=== PATIENT | female | born 1995 | race Caucasian/White ===

== ENCOUNTER 2020-10-30 15:47 | Emergency (ER) | payer OTHER, SELFPAY ==
[2020-10-30 15:53] VITALS: BP 147/94; PULSE 90; RESP 16; TEMP 36.7; O2SAT 100
--- NOTE | 2020-10-30 16:17 | ED.FEMALEGU ---
HPI - Female Genitourinary General Chief complaint: Urogenital-Female Stated complaint: UTI SYMPTOMS Source: patient and RN notes reviewed Limitations: no limitations History of Present Illness HPI Narrative: The patient, previously mostly healthy non-smoker/nondrinker, presents with ~week history of urinary frequency, urgency and dysuria associated also with malodor and pink-tinged hematuria only yesterday. No fever, abdominal pain, vomiting/diarrhea, hematuria now, low back pain, vaginal discharge; she says she has been tested for and STDs this month. Symptoms are mild, worse with micturition Related Data Allergies Allergy/AdvReac Type Severity Reaction Status Date / Time No Known Allergies Allergy Verified 10/30/20 15:59 Review of Systems Review of Systems: Narrative: The patient has been informed that they may have pre-hypertension or Hypertension based on a BP reading in the department. I recommend that the patient call the primary care provider listed on their discharge instructions or a physician of their choice this week to arrange follow up for further evaluation of possible pre-hypertension or Hypertension General/Constitutional: No weight loss,fever Eyes: N0: Redness,discharge Ears/Nose/Throat: No: Epistaxis,ear discharge Respiratory: Denies: Hemoptysis Gastrointestinal: No Vomiting, Bleeding-rectal Skin: No Lumps, eruption Neurologic: No Focal Weakness,Sz Hematologic: Denies: Petechiae/Purpura Psychiatric: No: Suicida ideationl All Other Systems: Reviewed and Negative PMFSH Comments At time of signature, agree with nursing past medical, surgical, social and family history. There is no relevant family history pertinent to the presenting complaint Exam Narrative: Exam Narrative: General Appearance: Well appearing, Conjunctiva clear Ears: External ear normal Nose: Normal nose Mouth/Throat: Normal appearing, Normal lips, Supple Respiratory: Airway patent, No respiratory distress abdomen: Soft, Non-tender, Musculoskeletal: Full ROM Skin: Warm, Dry Neurological: A&O x3, , Normal affect Course Vital Signs Vital signs: Vital Signs Temperature 98.1 F 10/30/20 15:53 Pulse Rate 90 10/30/20 15:53 Respiratory Rate 16 10/30/20 15:53 Blood Pressure 147/94 H 10/30/20 15:53 Pulse Oximetry 100 10/30/20 15:53 Temperature 98.1 F 10/30/20 15:53 Pulse Rate 90 10/30/20 15:53 Respiratory Rate 16 10/30/20 15:53 Blood Pressure 147/94 H 10/30/20 15:53 Pulse Oximetry 100 10/30/20 15:53 MDM - Female Genitourinary Lab Data Labs: Urine Glucose Negative Reference Range: Negative Urine Bilirubin Negative Reference Range: Negative Urine Specific [place] 1.020 Reference Range:1.001-1.035 Urine Blood 2+ Reference Range: Negative * * Urine pH 5.5 Reference Range: 5.0-9.0 Urine Protein Trace Reference Range: Negative Urine Urobilinogen 0.2 Reference Range: 0.2-1.0 Urine Nitrate Positive Reference Range: Negative Urine Leukocyte 3+ Reference Range: Negative Urine Color Yellow Reference Range: Yellow Urine Characteristics Cloudy Discharge Plan Discharge
== END 2020-10-30 16:22 | disposition home or self-care (01) ==
PROVIDERS: Emergency Provider Emergency Medicine
DX: N39.0 Urinary tract infection, site not specified (principal)
CPT/HCPCS: 81003; 87077; 87086; 87088; 87186; 99213; G0463